=== PATIENT | female | born 1980 | race Two or more races ===

== ENCOUNTER 2021-08-28 18:06 | Emergency (ER) | payer SELFPAY ==
[~2021-08-28] VITALS: Ht 167.6 cm; Wt 63.0 kg
[2021-08-28 21:10] VITALS: BP 122/55
== END 2021-08-28 21:10 | disposition home or self-care (01) ==
LOC: ER 18:06
DX: S60.012A Contusion of left thumb without damage to nail, initial encounter (principal); S60.011A Contusion of right thumb without damage to nail, initial encounter; S80.12XA Contusion of left lower leg, initial encounter; S80.11XA Contusion of right lower leg, initial encounter; V49.49XA Driver injured in collision with other motor vehicles in traffic accident, initial encounter; Y93.89 Activity, other specified; Y92.488 Other paved roadways as the place of occurrence of the external cause
CPT/HCPCS: 73130; 73590; 99284